=== PATIENT | female | born 1965 | race Caucasian/White ===

== ENCOUNTER 2017-02-25 12:19 | Emergency (ER) | payer SELFPAY ==
[2017-02-25 12:48] LABS: SPECIFIC GRAVITY 1.015 (1.001-1.030); URINE BILIRUBIN 2+ (NEGATIVE); URINE BLOOD 1+ (NEGATIVE); URINE GLUCOSE (UA) NEGATIVE (NEGATIVE); URINE NITRITE POSITIVE (NEGATIVE); URINE PROTEIN TRACE (NEGATIVE)
[2017-02-25 12:54] LABS: URINE COLOR ORANGE; URINE UROBILINOGEN 4 mg/dL (0-1 mg/dl)
[2017-02-25 12:55] LABS: URINE APPEARANCE CLEAR; URINE LEUKOCYTE ESTERASE 2+ (NEGATIVE)
[2017-02-25 12:59] LABS: URINE WBC 25-30 /hpf
[2017-02-25 13:00] LABS: URINE BACTERIA FEW
[2017-02-25] MEDS ORDERED: ONDANSETRON 4 MG ODT TAB ONE (13:06)
[2017-02-25] MEDS ORDERED: CEPHALEXIN 500 MG CAPSULE ONE (13:06)
[2017-02-25] MEDS ORDERED: IBUPROFEN 800 MG TABLET ONE (13:06)
[2017-02-25] MEDS ORDERED: HYDROCODONE/ACETAMINOPHEN 5/325MG TABLET ONE (13:44)
== END 2017-02-25 13:52 | disposition home or self-care (01) ==
LOC: ED 12:19
DX: N12 Tubulo-interstitial nephritis, not specified as acute or chronic (principal); R68.83 Chills (without fever); F17.210 Nicotine dependence, cigarettes, uncomplicated
CPT/HCPCS: 87086; 81001; 99283 ×2; A9270 ×4